=== PATIENT | female | born 1940 | race Two or more races ===

== ENCOUNTER 2022-05-31 05:55 | Inpatient (IN) | payer OTHER ==
[~2022-05-31] VITALS: Ht 165.1 cm; Wt 90.7 kg
[~2022-05-31 05:55] MED LIST: AMLODIPI PO
[2022-06-01] MEDS ORDERED: LEVOCETIRIZINE D5 MG (08:35)
[2022-06-01] MEDS ORDERED: FAMOTIDINE40 MG (08:35)
[2022-06-01] MEDS ORDERED: OXYBUTYNIN CHLO10 MG (08:35)
[2022-06-01] MEDS ORDERED: GABAPENTIN100 M2 (08:35)
[2022-06-01] MEDS ORDERED: HYDROCHLOROTHIA25 MG (08:36)
[2022-06-01] MEDS ORDERED: LOSARTAN POTAS100 MG (08:36)
[2022-06-01] MEDS ORDERED: ATORVASTATIN CA20 MG (08:36)
[2022-06-01] MEDS ORDERED: AMLODIPINE BESYL5 MG (08:36)
[2022-06-01] MEDS ORDERED: PANTOPRAZOLE SO40 MG (08:36)
[2022-06-01] MEDS ORDERED: METAXALONE800 MG (08:36)
== END 2022-06-01 22:30 | disposition home or self-care (01) | DRG 483 ==
LOC: CIR.AMB 05:55 → SURG 23:50 → O/R 23:50 → SURG 23:51
PROVIDERS: ADMIT Orthopaedic Surgery Hand Surgery; ATTEND Orthopaedic Surgery Hand Surgery
PROC: 0PSH04Z Reposition Right Radius with Internal Fixation Device, Open Approach (ICD-10-PCS; 2022-05-31)
PROC: 0L850ZZ Division of Right Lower Arm and Wrist Tendon, Open Approach (ICD-10-PCS; 2022-05-31)
PROC: 0LN50ZZ Release Right Lower Arm and Wrist Tendon, Open Approach (ICD-10-PCS; 2022-05-31)
PROC: 0PT Upper Bones, Resection (ICD-10-PCS; 2022-05-31)
PROC: 01Q40ZZ Repair Ulnar Nerve, Open Approach (ICD-10-PCS; 2022-05-31)
PROC: 0RRL0JZ Replacement of Right Elbow Joint with Synthetic Substitute, Open Approach (ICD-10-PCS; principal; 2022-05-31 17:45)
DX: S42.471A Displaced transcondylar fracture of right humerus, initial encounter for closed fracture (principal); S52.531A Colles' fracture of right radius, initial encounter for closed fracture; Z20.822 Contact with and (suspected) exposure to COVID-19